=== PATIENT | female | born 1940 | race Two or more races ===

== ENCOUNTER 2020-07-27 23:32 | Emergency (ER) | payer OTHER ==
[~2020-07-27] VITALS: Ht 149.9 cm; Wt 49.9 kg
[~2020-07-27 23:32] MED LIST: ALDACTONE25 MG; ALPRAZOLAM1 MG PO; ASA81 MG; ATORVASTATIN CA40 MG PO; CARVEDILOL12.5 MG; COZAAR100 MG; DOCUSATE SODIU100 MG PO; GLUCOTROL10 MG; HUMULIN R500 UNIT/2; HYDRALAZINE HCL50 MG; ISOSORBIDE DINI30 MG PO; LANTUS SOL100 UNIT/1; LASIX20 MG; PLAVIX75 MG; RANEXA500 MG; SYNTHROID88 MCG; TOPROL XL100 M1; XANAX2 MG
[2020-07-27] MEDS ORDERED: FUROSEMIDE20 MG PO (23:53)
[2020-07-27] MEDS ORDERED: SYNTHROID150 MCG PO (23:53)
[2020-07-27] MEDS ORDERED: METOPROLOL SUC100 MG PO (23:53)
[2020-07-27] MEDS ORDERED: PANTOPRAZOLE SO40 MG PO (23:54)
[2020-07-27] MEDS ORDERED: GLIPIZIDE5 MG PO (23:54)
[2020-07-27] MEDS ORDERED: ELIQUIS5 MG PO (23:55)
== END 2020-07-28 04:28 | disposition home or self-care (01) ==
LOC: ER 23:32
DX: R10.13 Epigastric pain (principal)

== ENCOUNTER 2020-11-08 13:59 | Inpatient (IN) | payer OTHER ==
[~2020-11-08] VITALS: Ht 144.8 cm; Wt 40.8 kg
[~2020-11-08 13:59] MED LIST changes: +ELIQUIS5 MG PO; +FUROSEMIDE20 MG PO; +GLIPIZIDE5 MG PO; +METOPROLOL SUC100 MG PO; +PANTOPRAZOLE SO40 MG PO; +SYNTHROID150 MCG PO
[2020-11-08] MEDS ORDERED: ELIQUIS2.5 MG PO (14:14)
[2020-11-08] MEDS ORDERED: CARDURA XL4 MG PO (14:14)
[2020-11-08] MEDS ORDERED: PEPCID40 MG PO (14:15)
[2020-11-08] MEDS ORDERED: ISOSORBIDE MONO60 MG (14:15)
[2020-11-08] MEDS ORDERED: TOPROL XL100 M1 PO (14:15)
[2020-11-08] MEDS ORDERED: XANAX2 MG PO (14:16)
[2020-11-08] MEDS ORDERED: HYDRALAZINE HCL25 MG PO (14:16)
[2020-11-08] MEDS ORDERED: HUMULIN R100 UNIT/1 (14:17)
[2020-11-08] MEDS ORDERED: LANTUS SOL100 UNIT/1 (14:17)
== END 2020-11-14 10:14 | disposition home or self-care (01) | DRG 292 ==
LOC: ER 13:59 → MEDI 20:07
PROVIDERS: ADMIT Internal Medicine Cardiovascular Disease; ATTEND Internal Medicine Cardiovascular Disease
PROC: 3E0F7SF Introduction of Other Gas into Respiratory Tract, Via Natural or Artificial Opening (ICD-10-PCS; principal; 2020-11-08)
PROC: 4A033R1 Measurement of Arterial Saturation, Peripheral, Percutaneous Approach (ICD-10-PCS; 2020-11-08)
PROC: 4A12X4Z Monitoring of Cardiac Electrical Activity, External Approach (ICD-10-PCS; 2020-11-08)
PROC: BW40ZZZ Ultrasonography of Abdomen (ICD-10-PCS; 2020-11-09)
DX: I50.9 Heart failure, unspecified (principal); J90 Pleural effusion, not elsewhere classified; K81.9 Cholecystitis, unspecified; Z20.822 Contact with and (suspected) exposure to COVID-19; R10.9 Unspecified abdominal pain; R07.9 Chest pain, unspecified

== ENCOUNTER 2020-12-21 21:48 | Inpatient (IN) | payer OTHER ==
[~2020-12-21] VITALS: Ht 127 cm; Wt 45.4 kg
[~2020-12-21 21:48] MED LIST changes: +CARDURA XL4 MG PO; +ELIQUIS2.5 MG PO; +HUMULIN R100 UNIT/1; +HYDRALAZINE HCL25 MG PO; +ISOSORBIDE MONO60 MG; +PEPCID40 MG PO; +TOPROL XL100 M1 PO; +XANAX2 MG PO
[2020-12-21] MEDS ORDERED: NITROGLYCERIN0.4 MG (21:55)
== END 2021-01-02 07:12 | disposition home or self-care (01) | DRG 291 ==
LOC: ER 21:48 → MEDJ 12-22 10:49 → SEC-K 12-22 10:49 → MEDJ 12-22 11:50
PROVIDERS: ADMIT Internal Medicine; ATTEND Internal Medicine
PROC: 4A12X4Z Monitoring of Cardiac Electrical Activity, External Approach (ICD-10-PCS; principal; 2020-12-22)
PROC: 3E0F7GC Introduction of Other Therapeutic Substance into Respiratory Tract, Via Natural or Artificial Opening (ICD-10-PCS; 2020-12-22)
PROC: B24BZZZ Ultrasonography of Heart with Aorta (ICD-10-PCS; 2020-12-22)
PROC: 8E0ZXY6 Isolation (ICD-10-PCS; 2020-12-24)
PROC: 02HV33Z Insertion of Infusion Device into Superior Vena Cava, Percutaneous Approach (ICD-10-PCS; 2020-12-25)
PROC: 30233N1 Transfusion of Nonautologous Red Blood Cells into Peripheral Vein, Percutaneous Approach (ICD-10-PCS; 2020-12-28)
DX: I13.0 Hypertensive heart and chronic kidney disease with heart failure and stage 1 through stage 4 chronic kidney disease, or unspecified chronic kidney disease (principal); I50.23 Acute on chronic systolic (congestive) heart failure; J18.8 Other pneumonia, unspecified organism; N39.0 Urinary tract infection, site not specified; Z16.12 Extended spectrum beta lactamase (ESBL) resistance; N17.8 Other acute kidney failure; K92.1 Melena; N18.2 Chronic kidney disease, stage 2 (mild); I27.20 Pulmonary hypertension, unspecified; E03.8 Other specified hypothyroidism; E11.65 Type 2 diabetes mellitus with hyperglycemia; B96.29 Other Escherichia coli [E. coli] as the cause of diseases classified elsewhere; E86.0 Dehydration; R09.02 Hypoxemia; E87.5 Hyperkalemia; E11.22 Type 2 diabetes mellitus with diabetic chronic kidney disease; Z79.4 Long term (current) use of insulin; D64.9 Anemia, unspecified

== ENCOUNTER 2021-03-17 00:47 | Inpatient (IN) | payer OTHER ==
[~2021-03-17] VITALS: Ht 127 cm; Wt 34.5 kg
[~2021-03-17 00:47] MED LIST changes: +NITROGLYCERIN0.4 MG
--- NOTE | 2021-03-17 01:14 | NUR ---
SE RECIBE PTE ALERTA Y ORIENTADA X 3 ESFERAS EN [place] Y EN COMPANIA DE FAMILIAR. FAMILIAR INDICA QUE PTE PRESENTA DOLOR DE PECHO DESDE LAS 8PM DE ROSE MARIE Y DOLOR ABDOMINAL DESDE LAS 3PM DE ROSE MARIE. SE UBICA A PTE EN UNIDAD DE DOLOR DE PECHO, SE CONECTA A MONITOR CARDIACO Y OXIMETRIA DE PULSO. SE REALIZA EKG Y SE PRESENTA A .
--- NOTE | 2021-03-17 02:24 | NUR ---
BENITEZ EDUCA A PTE SOBRE [place] MEDICO ESTA REFIERE ENTENDER. SE DAVE MUESTRAS DE LABORATORIO UTILIZANDO MEDIDAS ASEPETICAS. SE COLOCA H/L X2 LOS CUALES SE ENCUENTRAN PATENTES. SE ADMINSTRAN MEDICAMENTOS A PTE LOS CUALES TOLERA. SE NOTIFICA ESTUDIO DE RX PENDIENTE REALIZAR. PTE SE CONECTA A MONITOR CARDIACO CON OXIMETRIA CONTINUA. PTE SE CONTINUA MONITORIANDO POR CAMBIOS.
[2021-03-17] MEDS ORDERED: BUMETANIDE0.5 MG (02:52)
[2021-03-17] MEDS ORDERED: AVALIDE 300-121 EACH (02:53)
[2021-03-17] MEDS ORDERED: ISOSORBIDE MONO60 MG (02:53)
[2021-03-17] MEDS ORDERED: XANAX1 MG (02:56)
--- NOTE | 2021-03-17 04:41 | NUR ---
RE-EVALUA PTE. SE EDUCA A FAMILIAR SOBRE TX MEDICO. PTE REFIERE COMPRENDER. SE COLECTAN MUESTRAS DE LABORATORIO BAJO MEDIDAS ASEPTICAS. SE ADMINISTRA MEDICAMENTO ROMAN ORDEN MEDICA. SE INSERTA SONDA URINARIA BAJO MEDIDAS ESTERILES Y SE COLECTA MUESTRA DE U/A Y U/C. SE BRONWYN A PTE EN CAMA CON BARANDAS ELEVADAS POR SEGURIDAD Y SE MANTIENE EN OBSERVACION.
--- NOTE | 2021-03-17 05:20 | NUR ---
SE NOTIFICA A QUE PTE PRESENTA SATURACION EN 85%. ORDENA REPETIR ABG. REALIZA ABG.
--- NOTE | 2021-03-17 06:30 | NUR ---
ORDENA COLOCAR BIPAP. COLOCA EL MISMO CON LOS SIGUIENTES PARAMETROS: IPAP:12, EPAP:6,FIO2:100% Y R:14. SE ADMINISTRA MEDICAMENTO ROMAN ORDEN MEDICA. SE REALIZA MUESTRA DE SEGUNDA TROPONINA. SE BRONWYN A PTE EN CAMA CON BARANDAS ELEVADAS POR SEGURIDAD Y SE MANTIENE EN OBSERVACION POR CAMBIOS.
--- NOTE | 2021-03-17 08:02 | NUR ---
SE RECIBE PACIENTE FEMENINA, ALERTA Y ORIENTADA, EN UNIDAD DE CHEST PAIN, ACOSTADA EN JENNI, BARANDAS ELEVADAS POR SEGURIDAD. CONECTADA A MONITOR CARDIACO Y OXIMETRIA DE PULSO. PACIENTE CON BIPAP CON PARAMETROS: IPAP:12, GPAP:6, F02:100%, R:14. CANALIZADA EN BRAZO REMIGIO, RECIBIENDO 0.9NSS Y TRIDIL 50MG/250ML BAJANDO A 6ML/HR. AREAS DE VENOPUNCION LIBRES DE EDEMA Y/O ENROJECIMIENTO, PATENTES AL MOMENTO. ABDOMEN DEPRESIBLE AL TACTO, PERISTALSIS PRESENTE. DIMAS CATHETER, PATENTE AL MOMENTO, SE OBSERVA EGRESO DE ORINA AMARILLO OUMAR. SE LE ORIENTA SOBRE CONTINUIDAD DE TRATAMIENTO, REFIERE ENTENDER. SE MIDE S/V. SE MANTIENE BAJO OBSERVACION POR CAMBIOS.
--- NOTE | 2021-03-17 09:01 | NUR ---
PACIENTE EVALUADA POR DR. VARGAS.
[2021-03-17] MEDS ORDERED: ISOSORBIDE DINI30 MG (13:39)
[2021-03-24] MEDS ORDERED: ALPRAZOLAM1 MG PO (14:21)
[2021-03-24] MEDS ORDERED: LEVOTHYROXINE150 MCG PO (14:21)
[2021-03-24] MEDS ORDERED: TRAMADOL HCL50 MG PO (14:21)
[2021-03-24] MEDS ORDERED: CARVEDILOL12.5 MG PO (14:21)
[2021-03-24] MEDS ORDERED: ISOSORBIDE MONO30 MG PO (14:21)
[2021-03-24] MEDS ORDERED: FUROSEMIDE20 MG PO (14:21)
[2021-03-24] MEDS ORDERED: ELIQUIS2.5 MG PO (14:21)
== END 2021-03-24 15:12 | disposition home or self-care (01) | DRG 292 ==
LOC: ER 00:47 → SEC-K 11:05 → ICU-2 11:05 → ICU 11:05 → ICU-2 15:37 → ICU 03-18 13:40 → MEDI 03-23 14:53
PROVIDERS: ADMIT Internal Medicine; ATTEND Internal Medicine
PROC: B24BZZZ Ultrasonography of Heart with Aorta (ICD-10-PCS; 2021-03-17)
PROC: 30233N1 Transfusion of Nonautologous Red Blood Cells into Peripheral Vein, Percutaneous Approach (ICD-10-PCS; principal; 2021-03-19)
PROC: BW28ZZZ Computerized Tomography (CT Scan) of Head (ICD-10-PCS; 2021-03-21)
PROC: 4A12X4Z Monitoring of Cardiac Electrical Activity, External Approach (ICD-10-PCS; 2021-03-23)
DX: I11.0 Hypertensive heart disease with heart failure (principal); J44.1 Chronic obstructive pulmonary disease with (acute) exacerbation; N39.0 Urinary tract infection, site not specified; I24.9 Acute ischemic heart disease, unspecified; N18.2 Chronic kidney disease, stage 2 (mild); I50.9 Heart failure, unspecified; I50.1 Left ventricular failure, unspecified; R07.89 Other chest pain; Z79.4 Long term (current) use of insulin; Z20.822 Contact with and (suspected) exposure to COVID-19; I25.10 Atherosclerotic heart disease of native coronary artery without angina pectoris; Z99.89 Dependence on other enabling machines and devices; B96.29 Other Escherichia coli [E. coli] as the cause of diseases classified elsewhere; E03.8 Other specified hypothyroidism; I12.9 Hypertensive chronic kidney disease with stage 1 through stage 4 chronic kidney disease, or unspecified chronic kidney disease; E11.22 Type 2 diabetes mellitus with diabetic chronic kidney disease

== ENCOUNTER 2021-05-07 21:29 | Emergency (ER) | payer OTHER ==
[~2021-05-07] VITALS: Ht 127 cm; Wt 45.4 kg
[~2021-05-07 21:29] MED LIST changes: +AVALIDE 300-121 EACH; +BUMETANIDE0.5 MG; +CARVEDILOL12.5 MG PO; +ISOSORBIDE DINI30 MG; +ISOSORBIDE MONO30 MG PO; +LEVOTHYROXINE150 MCG PO; +TRAMADOL HCL50 MG PO; +XANAX1 MG
[2021-05-08] MEDS ORDERED: KETO10TA2 PO (07:03)
[2021-05-08] MEDS ORDERED: ULTRAM50 MG PO (07:08)
== END 2021-05-08 09:42 | disposition home or self-care (01) ==
LOC: ER 21:29
DX: S42.212A Unspecified displaced fracture of surgical neck of left humerus, initial encounter for closed fracture (principal); S22.31XA Fracture of one rib, right side, initial encounter for closed fracture; X58.XXXA Exposure to other specified factors, initial encounter; Y93.9 Activity, unspecified; Y92.019 Unspecified place in single-family (private) house as the place of occurrence of the external cause; J90 Pleural effusion, not elsewhere classified

== ENCOUNTER 2021-07-31 20:57 | Inpatient (IN) | payer OTHER ==
[~2021-07-31] VITALS: Ht 149.9 cm; Wt 45.4 kg
[~2021-07-31 20:57] MED LIST changes: +KETO10TA2 PO; +ULTRAM50 MG PO
--- NOTE | 2021-07-31 21:25 | NUR ---
PTE ALERTA,ESTABLE Y ORIENTADA.ESTA REFIERE QUE DESDE ROSE MARIE COMENZO CON EL DOLOR DE PECHO Y LA PRESION EVELINA.
--- NOTE | 2021-07-31 22:07 | NUR ---
PTE EVALUADA POR EL DR MUNIZA QUIEN ORDENA EL [place]. MR Gonzales MENCHACA ORIENTA SOBRE EL TX ORDENADO, LO CUAL REFIERE ENTENDER, REALIZA PRUEBAS DE LABORATORIO Y ADMINISTRA MEDICAMENTOS ROMAN ORDEN MEDICA Y SIGUIENDO MEDIDAS ASEPTICAS. ABG YA REALIZADOS.
--- NOTE | 2021-07-31 22:13 | NUR ---
SE REALIZA ADMINISTRACION DE MEDICAMENTOS POR ORDEN MEDICA, SE ORIENTA A PACIENTE SOBRE USO Y EFECTO DEL MEDICAMENTOS A SER ADMINISTRADO.
--- NOTE | 2021-08-01 00:29 | NUR ---
SE RECIBE PTE FEMENINA ALERTA Y ORIENTADA X3,EN COMPANIA DE FAMILIAR,SE ORIENTA A PTE Y FAMILIAR QUE SERA COLOCADA EN AREA DE COVID,SE COLOCA EN CAMA K-8 Y SE CONECTA A MONITOR CARDIACO LISS Y OXIMETRIA CONTINUA,SE CANALIZA Y COLOCA QUINTIN H/L PATENTE MITUL DE EDEMA Y ENROEJECIMIENTO,SE MANTIENE CON DIMAS,SE COLOCA TRIDIL@3ML/HR Y SE NOTIFICA A QUE ESTA EAN XANAX 1MG A LA HR DE DORMIR Y CESAR LO ORDEN VERBAL Y SE ADMINISTRA Y PTE TOLERA,PTE TRANQUILA Y MUY COOPERADOA CON EL TRATAMIENTO,SE MANTIENE A PTE EN OBSERVACION POR CAMBIOS. SE VIGILA LISS.
--- NOTE | 2021-08-01 05:30 | NUR ---
SE DAVE MUESTRAS A PTE Y SE ENVIAN A LABORATORIO,PTE SE OBSERVA TRANQUILA Y COOPERADORA. SE MNATKENE A PTE EN OBSERVACION LISS POR CAMBIOS.
--- NOTE | 2021-08-01 07:46 | NUR ---
SE RECIBE PTE FEMENNINA DE 81 YRS ALERTA CONCIENTE Y TRANQUILA EN AREA DE SEC-K/ PTE CONECTADA A MONITOR CARDIACO Y OXIMENTRIA. PTE CONSULTADA CON EL MEDICO INTERNISTA. SE LE EAN S/V Y SE DOCUMENTA. SE MANTIENE BAJO OBSERVACION.
== END 2021-08-08 15:08 | disposition expired | DRG 291 ==
LOC: ER 20:57 → MEDJ 08-01 12:16 → SEC-K 08-01 13:10 → MEDJ 08-01 14:08
PROVIDERS: ADMIT Internal Medicine; ATTEND Internal Medicine
PROC: 8E0ZXY6 Isolation (ICD-10-PCS; 2021-07-31)
PROC: 4A12X4Z Monitoring of Cardiac Electrical Activity, External Approach (ICD-10-PCS; 2021-08-01)
PROC: BW28ZZZ Computerized Tomography (CT Scan) of Head (ICD-10-PCS; principal; 2021-08-02)
PROC: B24BZZZ Ultrasonography of Heart with Aorta (ICD-10-PCS; 2021-08-02)
PROC: 3E0F7SF Introduction of Other Gas into Respiratory Tract, Via Natural or Artificial Opening (ICD-10-PCS; 2021-08-03)
DX: I13.0 Hypertensive heart and chronic kidney disease with heart failure and stage 1 through stage 4 chronic kidney disease, or unspecified chronic kidney disease (principal); U07.1 COVID-19; J12.82 Pneumonia due to coronavirus disease 2019; I50.23 Acute on chronic systolic (congestive) heart failure; J96.10 Chronic respiratory failure, unspecified whether with hypoxia or hypercapnia; I48.20 Chronic atrial fibrillation, unspecified; J44.1 Chronic obstructive pulmonary disease with (acute) exacerbation; N39.0 Urinary tract infection, site not specified; Z16.12 Extended spectrum beta lactamase (ESBL) resistance; N17.8 Other acute kidney failure; I24.9 Acute ischemic heart disease, unspecified; I42.8 Other cardiomyopathies; E11.22 Type 2 diabetes mellitus with diabetic chronic kidney disease; Z79.4 Long term (current) use of insulin; N18.2 Chronic kidney disease, stage 2 (mild); E86.0 Dehydration; E03.8 Other specified hypothyroidism; G47.09 Other insomnia; E11.65 Type 2 diabetes mellitus with hyperglycemia; B96.29 Other Escherichia coli [E. coli] as the cause of diseases classified elsewhere; I35.0 Nonrheumatic aortic (valve) stenosis